=== PATIENT | male | born 1990 | race African-American/Black ===

== ENCOUNTER 2016-11-12 09:27 | Emergency (ER) | payer SELFPAY ==
[~2016-11-12] VITALS: Ht 172.7 cm; Wt 61.2 kg
[2016-11-12 09:38] VITALS: BP 143/76
[2016-11-12] MEDS ORDERED: IBUPROFEN 800 MG TAB PO ONE (11:00)
== END 2016-11-12 11:11 | disposition home or self-care (01) ==
LOC: ER 09:36
DX: S60.222A Contusion of left hand, initial encounter (principal); W51.XXXA Accidental striking against or bumped into by another person, initial encounter; Y93.89 Activity, other specified; Y92.098 Other place in other non-institutional residence as the place of occurrence of the external cause; Y99.8 Other external cause status
CPT/HCPCS: 73130